=== PATIENT | male | born 1985 | race Two or more races ===

== ENCOUNTER 2023-12-10 09:08 | Day surgery (SDC) | payer BC ==
[~2023-12-10] VITALS: Ht 172.7 cm; Wt 99.8 kg
[2023-12-10] MEDS ORDERED: LIDOCAINE VISCOUS 2% 15ML UD ONE (09:34)
[2023-12-10] MEDS ORDERED: SIMETHICONE 40 MG/0.6 ML ORAL DROP ONE (09:34)
[2023-12-10] MEDS ORDERED: MIDAZOLAM HCL 2MG/2ML 2ml VIAL (1mg/ml) ONE (10:50)
[2023-12-10] MEDS ORDERED: MEPERIDINE HCL (25 MG/ML) 1ML VIAL ONE (10:50)
[2023-12-10] MEDS ORDERED: fentaNYL CITRATE 100 MCG/2 ML VL ONE (10:50)
[2023-12-10] MEDS ORDERED: DexAMETHasone SOD PHOS 10MG/1ML VIAL INJ ONE (11:04)
[2023-12-10] MEDS ORDERED: PROPOFOL 10 MG/ML 20 ML IV ONE (11:32)
[2023-12-10] MEDS ORDERED: MIDAZOLAM HCL 2MG/2ML 2ml VIAL (1mg/ml) IV PRN (11:45)
[2023-12-10] MEDS ORDERED: MORPHINE SULFATE 4 MG/ML SYR/VIAL IV PRN (11:45)
[2023-12-10] MEDS ORDERED: LABETALOL HCL 5 MG/ML 4ML SYRINGE IV PRN (11:45)
[2023-12-10] MEDS ORDERED: HYDROmorphone HCL 2 MG/ML VL/or syr IV PRN (11:45)
[2023-12-10] MEDS ORDERED: ePHEDrine SULFATE 50 MG/ML AMP IV PRN (11:45)
[2023-12-10] MEDS ORDERED: ONDANSETRON HCL 4 MG/2 ML VIAL IV PRN (11:45)
[2023-12-10 12:50] VITALS: BP 118/74; PULSE 80; RESP 15; TEMP 98.1; O2SAT 95
== END 2023-12-10 12:55 | disposition home or self-care (01) ==
LOC: GI 09:08 → EEVIPCON 10:30 → GI 12:55
PROVIDERS: ATTEND Internal Medicine Gastroenterology
DX: K62.5 Hemorrhage of anus and rectum (principal); R10.9 Unspecified abdominal pain; D12.5 Benign neoplasm of sigmoid colon; K44.9 Diaphragmatic hernia without obstruction or gangrene; K29.50 Unspecified chronic gastritis without bleeding; K22.10 Ulcer of esophagus without bleeding; K64.8 Other hemorrhoids; K62.89 Other specified diseases of anus and rectum; Z79.899 Other long term (current) drug therapy; Z98.890 Other specified postprocedural states
CPT/HCPCS: 43239; 45381; 45385; 88305; 88313; 88342; J1100; J2175; J2250; J2704; J3010; J7030

== ENCOUNTER 2025-02-02 11:29 | Day surgery (SDC) | payer BC ==
[~2025-02-02] VITALS: Ht 172.7 cm; Wt 99.8 kg
[2025-02-02] MEDS ORDERED: PROPOFOL 10 MG/ML 20 ML IV ONE ×2 (13:32→13:44)
[2025-02-02] MEDS ORDERED: LIDOCAINE 1% INJ PF 5ML AMP ONE (13:32)
[2025-02-02 14:39] VITALS: BP 107/73; PULSE 75; RESP 19; O2SAT 97
--- NOTE | 2025-02-02 16:50 | DVHOP2 ---
Operative Report DATE OF OPERATION: 02/02/25 PROCEDURE: Colonoscopy with cold biopsy polypectomy. PREOPERATIVE INDICATION: The patient is a 39 -year-old male undergoing colonoscopy for surveillance with personal history of large sigmoid polyp that was removed in 2023 POSTOPERATIVE DIAGNOSES: 1. There were two tiny diminutive benign-appearing sigmoid polyps were seen and removed by cold biopsy forceps 2. There was no residual polypoid growth at the site of previous polypectomy last year 3. 1+ internal hemorrhoids with hypertrophied anal papillae otherwise normal examination up to the cecum and terminal ileum PROCEDURE PERFORMED BY: Cachorro Will M.D. SCOPE: Olympus videocolonoscope. ASA CLASS: 2. PREOPERATIVE MEDICATIONS: Mac sedation, Olman Alarcon PROCEDURE IN DETAIL: After obtaining an informed consent, the patient was placed on left lateral decubitus position. He was then sedated with the above medications. A rectal examination was performed that was normal. The colonoscope was then passed through the anus into the rectosigmoid and through the descending, transverse, and ascending colon up to the cecum with visualization of the appendiceal orifice, base of the cecum and the ileocecal valve. The colonoscope was then withdrawn. The distal 5 cm of the terminal ileum were norm al No masses or colitis were seen. There was no clear-cut diverticular disease. The sigmoid area was carefully evaluated and there was no residual or recurrent polypoid growth at the site of previous polypectomy There were two new diminutive hyperplastic type sigmoid polyps were seen and removed by cold biopsy forceps On retroflexion and straight on view the patient had 1+ internal hemorrhoids with hypertrophied anal papilla The patient tolerated the procedure well without difficulty. WITHDRAWAL TIME: 7 minutes QUALITY OF THE PREP: [place] Bowel Prep score: 9. COMPLICATIONS : None SPECIMENS: Times Sigmoid polyps x2 DISPOSITION: Stable D/C to home PLAN: 1. Repeat colonoscopy in 2-3 years 2. Resume GI soft diet advance as tolerated 3. Local anorectal hemorrhoidal care 4. Follow up in my office in 2-4 weeks to review results and discuss further management CACHORRO WILL MD Feb 02, 2025 16:50
== END 2025-02-02 14:45 | disposition home or self-care (01) ==
LOC: GI 11:29 → EEVIPCON 13:30 → GI 14:45
PROVIDERS: ATTEND Internal Medicine Gastroenterology
DX: Z09 Encounter for follow-up examination after completed treatment for conditions other than malignant neoplasm (principal); K63.5 Polyp of colon; K64.8 Other hemorrhoids; K62.89 Other specified diseases of anus and rectum; E66.3 Overweight
CPT/HCPCS: 45380; 88305; J2704; J7030